=== PATIENT | female | born 1945 | race Caucasian/White ===

== ENCOUNTER 2017-06-19 13:00 | Outpatient (CLI) | payer MEDICARE ==
--- NOTE | 2017-06-19 14:09 | RAD ---
TWO VIEWS CHEST: Comparison: 12-02-15 History: Dyspnea. FINDINGS: Two views of the chest shows a normal sized cardiomediastinal silhouette with atherosclerotic calcifi cations in the aorta. There is no evidence of consolidation, mass, or pleural effusion. IMPRESSION: No evidence of acute cardiopulmonary disease. POS: [facility]
== END 2017-06-19 13:01 | disposition home or self-care (01) ==
LOC: RAD 13:00
PROVIDERS: ATTEND Internal Medicine Critical Care Medicine
DX: R06.00 Dyspnea, unspecified (principal)
CPT/HCPCS: 71046

== ENCOUNTER 2018-05-16 09:50 | Emergency (ER) | payer MEDICARE ==
[2018-05-16 10:47] LABS: #Basophils 0.1 thou/uL (0.0-0.2); #Eosinphils 0.3 thou/uL (0.0-0.7); #Lymphocytes 2.2 thou/uL (1.20-3.40); #Monocytes 0.4 thou/uL (0.11-0.59); #Neutrophils 3.9 thou/uL (1.40-6.50); %Basophils 1.2 % (0.0-1.0); %Lymphocytes 32.5 % (21.0-51.0); %Monocytes 5.1 % (0.0-10.0); %Neutrophils 57.1 % (42.0-75.0); Hemoglobin 15.4 g/dL (12.0-16.0); Mean Corpuscular HGB CONC 33.4 g/dL (32.0-36.0); Mean Corpuscular Hemoglobin 30.9 pg (27.0-31.0); Mean Corpuscular Volume 92.3 fL (78.0-98.0); Mean Platelet Volume 6.9 fL (7.4-10.4); Platelet Count 204 thou/uL (130-400); RBC Distribution Width 11.8 % (11.5-14.5); Red Blood Cell (RBC) Count 4.97 mill/uL (4.20-5.40); White Blood Cell (WBC) Count 6.8 thou/uL (4.8-10.8)
[2018-05-16 10:59] LABS: PTT 27.8 SEC (22.9-36.1); Prothrombin Time 13.5 SEC (12.0-14.7)
[2018-05-16 11:10] LABS: ALT (SGPT) 16 U/L (8-55); AST (SGOT) 19 U/L (5-34); Albumin 4.1 g/dL (3.4-4.8); Alkaline Phosphatase 80 U/L (40-150); Anion Gap 12 mmol/L (10-20); BUN (Urea Nitrogen) 6 mg/dL (9.8-20.1); Bilirubin, Total 0.7 mg/dL (0.2-1.2); Calc. Creatinine Clearance 0 mL/min (70-130); Calcium 9.6 mg/dL (7.8-10.44); Carbon Dioxide 26 mmol/L (23-31); Chloride 107 mmol/L (98-107); Estimated GFR-MDRD 67; Globulin 3.1 g/dL (2.4-3.5); Glucose 87 mg/dL (83-110); Potassium 4.3 mmol/L (3.5-5.1); Protein, Total 7.2 g/dL (6.0-8.3); Sodium 141 mmol/L (136-145)
[2018-05-16 11:31] LABS: CKMB 0.9 ng/mL (0-6.6)
[2018-05-16] MEDS ORDERED: Proparacaine 0.5% Opth 15 ML BOT ONE (12:29)
== END 2018-05-16 14:46 | disposition home or self-care (01) ==
LOC: ERS 09:50
DX: H53.8 Other visual disturbances (principal); E78.5 Hyperlipidemia, unspecified; M19.90 Unspecified osteoarthritis, unspecified site; F17.210 Nicotine dependence, cigarettes, uncomplicated; E03.9 Hypothyroidism, unspecified; Z79.82 Long term (current) use of aspirin; Z79.899 Other long term (current) drug therapy
CPT/HCPCS: 36415; 80053; 82553; 84484; 85025; 85610; 85652; 85730; 93005

== ENCOUNTER 2018-05-22 12:49 | Outpatient (CLI) | payer MEDICARE ==
--- NOTE | 2018-05-22 14:58 | CT ---
CONTRAST ENHANCED CTA CAROTID ARTERIES: HISTORY: Transient retinal occlusion. TECHNIQUE: Contrast enhanced CTA carotid arteries is performed, and 2D and 3D reconstructed images are performed on an independent 3D work station. FINDINGS: Images demonstrate some atherosclerotic plaque seen in the aortic arch. The right brachiocephalic artery is patent. The right and left common carotid arteries are patent. Minimal distal-most aspect, proximal right ICA calcified plaque is seen. The rest of the right ICA i s patent. The left common carotid artery is patent along its course. Minimal atherosclerotic plaque is seen in the distal-most aspect of the left CCA, and minimally extending into the left ICA. More distally, t he left ICA is patent. The patient has a dominant left vertebral artery. The basilar artery is also patent. IMPRESSION: Minimal bilateral proximal internal carotid artery calcified plaque. POS: [id number]
== END 2018-05-22 12:50 | disposition home or self-care (01) ==
LOC: BICCT 12:49
PROVIDERS: ATTEND Ophthalmology
DX: H34.01 Transient retinal artery occlusion, right eye (principal); I65.23 Occlusion and stenosis of bilateral carotid arteries
CPT/HCPCS: 70498